=== PATIENT | female | born 1985 | race Caucasian/White ===

== ENCOUNTER → 2021-05-01 16:55 | Outpatient (CLI) | payer BC, SELFPAY ==
--- NOTE | ~2021-05-01 | XR_ITS ---
XR chest 2V DATE: 05/01/2021 17:18 INDICATION: Shortness of breath. Covid-positive. TECHNIQUE: PA and lateral views COMPARISON: None FINDINGS: Normal heart size. No hilar or mediastinal enlargement. No pulmonary infiltrate or consolid ation, pleural effusion or pulmonary vascular congestion or pneumothorax. Mild thoracolumbar dextrosc oliosis. IMPRESSION: No active cardiopulmonary disease Reviewed, dictated and finalized at location B. ENT RELATIONS DIRECTOR
== END ==
DX: R06.02 Shortness of breath (principal); U07.1 COVID-19
CPT/HCPCS: 71046

== ENCOUNTER 2023-03-19 10:02 | Emergency (ER) | payer BC, SELFPAY ==
--- NOTE | ~2023-03-19 | CT_ITS ---
EXAMINATION: CT abdomen pelvis w con DATE: 03/19/2023 12:25 INDICATION: Epigastric pain and diarrhea TECHNIQUE: Computed tomography (CT) of the abdomen and pelvis was performed with 100 mL Omnipaque-350 intravenous contrast. Automated exposure control and iterative reconstruction technique were employe d. The dose-length product was 1213.81 mGy-cm. COMPARISON: None FINDINGS: Lung bases are clear. Heart size is normal. No pericardial or pleural effusion. Liver, gallbladder, s pleen, pancreas, bilateral adrenal glands and kidneys are normal. There is fluid scattered throughout the colon consistent with reported history of diarrhea. No abnormal bowel wall thickening or obstruc tion. Appendix is normal. 5.5 cm avidly enhancing fibroid at the left side of the uterine fundus. Ernesto ateral adnexa are unremarkable. Small fat-containing umbilical hernia. No free intraperitoneal gas or fluid. No pathologically enlarged abdominal or pelvic lymphadenopathy. Mild thoracolumbar spondylosi s. IMPRESSION: 1. Nonspecific diarrhea. No other acute intra-abdominal/pelvic process. 2. 5.5 cm uterine fibroid. Reviewed, dictated and finalized at location A. L CRANE OPERATOR
[2023-03-19 10:20] VITALS: BP 126/87; PULSE 70; RESP 16; TEMP 36.7; O2SAT 96
--- NOTE | 2023-03-19 10:47 | ED.GENADULT ---
HPI - General Adult General Chief complaint: Nausea/Vomiting/Diarrhea Stated complaint: pooping all the time , c. diff exposure Time Seen by Provider: 03/19/23 10:08 History of Present Illness HPI narrative: 38-year-old female reports for evaluation for watery diarrhea x2 days. 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 States she has had copious amounts of watery diarrhea for the past 2 days and reports a 5 lb weight loss. She reports intermittent epigastric abdominal cramping and nausea. No emesis, fever, cough or congestion, chest pain or shortness of breath, dysuria or hematuria. She denies hematochezia melena, no purulence in her stool. No recent antibiotic use, surgery, hospitalizations or travel. Denies syncope. She does states she felt lightheaded yesterday. Related Data Allergies Allergy/AdvReac Type Severity Reaction Status Date / Time tramadol Allergy Rash Verified 03/19/23 10:32 Review of Systems Review of Systems: CONSTITUTIONAL: Denies fever, chills, or sweats. EYES: Denies visual changes, redness, or discharge. ENT: Denies rhinorrhea, congestion, sore throat, or otalgia. CARDIOVASCULAR: Denies chest pain, palpitations, or edema. RESPIRATORY: Denies cough or dyspnea. GASTROINTESTINAL: See HPI GENITOURINARY: Denies dysuria or hematuria. SKIN: Denies rash or itching. MUSCULOSKELETAL: Denies back pain, joint pain, or myalgia. NEUROLOGIC: Denies headache, numbness, or weakness. PSYCHIATRIC: Denies anxiety or depression. Exam Narrative: GENERAL: Well-appearing, well-nourished, and in no acute distress. HEAD: Normocephalic, atraumatic. EYES: PERRLA and EOMI. ENT: Nares clear, no rhinorrhea or epistaxis. Mucous membranes moist. NECK: Supple. CHEST: Clear to auscultation. No respiratory distress. HEART: Regular rate and rhythm. No murmur heard. Normal peripheral pulses. ABDOMEN: Soft, nontender, nondistended, normal active bowel sounds. No guarding, rebound or rigidity. No CVA tenderness. EXTREMITIES: Normal range of motion. No edema. SKIN: Warm, dry, no rash. NEURO: No focal deficits. Alert and oriented x3 Course Vital Signs Vital signs: Vital Signs Temperature 98.1 F 03/19/23 10:20 Pulse Rate 70 03/19/23 10:20 Respiratory Rate 16 03/19/23 10:20 Blood Pressure 126/87 03/19/23 10:20 Pulse Oximetry 96 03/19/23 10:20 Oxygen Delivery Room Air 03/19/23 10:20 Temperature 98.1 F 03/19/23 10:20 Pulse Rate 75 03/19/23 11:26 Respiratory Rate 16 03/19/23 10:20 Blood Pressure 116/60 03/19/23 11:26 Pulse Oximetry 96 03/19/23 10:20 Oxygen Delivery Room Air 03/19/23 10:20 Medical Decision Making MDM Narrative Medical decision making narrative: 38-year-old female reports for evaluation for diarrhea x2 days. See HPI for further history. Vitals are stable and she is afebrile. No hypotension or tachycardia. She is largely well appearing on exam. CBC and chemistries are unremarkable. No electrolyte abnormalities. Magnesium normal at 2.0. Lactic acid not elevated. LFTs unremarkable. Urinalysis not consistent with a UTI. COVID, flu and RSV are negative. C. diff PCR is negative. Lipase normal. negative. CT abdomen pelvis shows nonspecific diarrhea, no other acute intra-abdominal or pelvic process. There is a 5.5 cm uterine fibroid. She is not orthostatic. Labs and imaging discussed with the patient. No significant electrolyte abnormalities or hypotension required admission. She received 2 L of fluids and will be discharged home with close PCP follow-up. Encouraged increased fluid intake, will send Zofran to pharmacy. Strict ED return precautions discussed. She is agreeable to plan verbalized understanding. Discharged in stable condition. Vital Signs Vital Signs: Vital Signs Temperature 98.1 F 03/19/23 10:20 Pulse Rate 70 03/19/23 10:20 Respiratory Rate 16 03/19/23 10:20 Blood Pressure 126/87 03/19/23 10
[2023-03-19] MEDS: SODIUM CHLORIDE 0.9% IV 1,000 ML 999 ML IV CONT ×3 (11:00→12:43)
[2023-03-19 11:15] LABS: Basophils Percent Auto 0.4 % (0.2-1.2); Eosinophils Absolute Auto 0.2 K/mm3 (0-0.3); Eosinophils Percent Auto 2.9 % (0-4.4); Hematocrit 46.9 % (37.0-47.0); Hemoglobin 14.8 g/dL (12.0-15.0); Immature Granulocyte Absolute 0.01 K/mm3 (0.00-0.031); Immature Granulocyte Percent A 0.2 % (0-0.5); Lymphocytes Absolute Auto 1.75 K/mm3 (0.9-3.2); Mean Corpuscular HGB Conc 31.6 g/dl (32-36); Mean Corpuscular Hemoglobin 26.1 pg (26-34); Mean Corpuscular Volume 82.9 fl (80-100); Mean Platelet Volume 9.9 fl (7.4-10.4); Monocytes Absolute Auto 0.5 K/mm3 (0.1-0.6); Monocytes Percent Auto 9.9 % (2.6-8.5); Neutrophils Absolute Auto 2.7 K/mm3 (1.3-6.7); Neutrophils Percent Auto 52.6 % (45.5-73.1); Platelet Count Result 217 k/mm3 (150-375); Red Blood Count 5.66 M/mm3 (4.2-5.4); Red Cell Distribution Width 14.1 % (11.5-14.5); White Blood Count 5.2 K/mm3 (4.5-10.0)
[2023-03-19 11:22] VITALS: BP 127/56; PULSE 68
[2023-03-19 11:24] LABS: Lactic Acid Reflex 0.6 mmol/L (0.7-2.0)
[2023-03-19 11:25] VITALS: BP 119/92; PULSE 67
[2023-03-19 11:26] VITALS: BP 116/60; PULSE 75
[2023-03-19 11:26] LABS: Alanine Aminotransferase 22 U/L (6-35); Albumin Level 4.6 g/dL (3.5-5.1); Alkaline Phosphatase 34 U/L (38-126); Anion Gap 8 mmol/L (8-16); Aspartate Amino Transferase 28 U/L (14-36); Bilirubin,Total 0.5 mg/dL (0.2-1.3); Blood Urea Nitrogen 13 mg/dL (7-17); Calcium 8.5 mg/dL (8.4-10.2); Carbon Dioxide 24 mmol/L (22-30); Chloride 108 mmol/L (98-107); Estimated CRCL calculation 127 ml/min; Estimated Glomerular Filt Rate > 60; Glucose 92 mg/dL (65-110); Lipase 41 U/L (23-300); Sodium 140 mmol/L (137-145)
[2023-03-19 11:30] LABS: Appearance Urine Clear (Clear); Bacteria Urine None Seen /hpf; Bilirubin Urine Negative (Negative); Blood Urine Negative (Negative); Color Urine Yellow (Yellow); Glucose Urine UA Negative (Negative); Ketones Urine Negative (Negative); Leukocyte Esterase Ur Negative LEU/UL (Negative); Mucus Urine Present /lpf; Need Manual Microscopic Reviewed; Nitrate Urine Negative (Negative); Protein Urine Trace mg/dL (Negative); RBC Urine 0-2 /hpf (0-2); Specific Grav Ur 1.028 (1.001-1.035); Squamous Epithelial Cell Urine Occasional /hpf (Few); Urobilinogen Urine 0.2 mg/dL (<2.0)
[2023-03-19 11:37] LABS: Add Urine Microscopic? YES
--- NOTE | 2023-03-19 11:39 | PC.NURSE ---
patient states she had a tubal and not . test cancelled. provider aware
[2023-03-19 11:57] LABS: Influenza A QL RT-PCR Negative (Negative); Influenza B QL RT-PCR Negative (Negative); RSV RNA, RT-PCR Negative (Negative); SARS-CoV-2 RNA PCR Negative (Negative)
[2023-03-19 12:04] LABS: Toxigenic C. Diff NEGATIVE (NEGATIVE)
[2023-03-19 12:57] VITALS: BP 107/76; PULSE 70; RESP 16; O2SAT 100
== END 2023-03-19 13:47 | disposition home or self-care (01) ==
PROVIDERS: Emergency Provider Physician Assistant
DX: K52.9 Noninfective gastroenteritis and colitis, unspecified (principal); Z20.822 Contact with and (suspected) exposure to COVID-19; D25.9 Leiomyoma of uterus, unspecified
CPT/HCPCS: 36415; 74177; 80053; 81001; 81025; 83605; 83690; 83735; 85025; 87045; 87086; 87427; 87449; 87493; 87637; 89055; 96360; 96361; 99284; J7030; Q9967

== ENCOUNTER 2023-07-01 17:00 | Observation (INO) | payer BC, SELFPAY ==
[2023-07-01] VITALS (14 sets, daily range): BP systolic 116–146; BP diastolic 53–82; PULSE 68–101; RESP 12–35; TEMP 37.1–37.2; O2SAT 98–100; BMI 40.9
--- NOTE | ~2023-07-01 | CT_ITS ---
EXAMINATION: CT abdomen pelvis w con DATE: 07/01/2023 18:29 INDICATION: epigastric pain, n/v/d TECHNIQUE: Computed tomography (CT) of the abdomen and pelvis was performed with 100 mL Omnipaque-350 intravenous contrast. Automated exposure control and iterative reconstruction technique were employe d. The dose-length product was 1190.73 mGy-cm. COMPARISON: 03/19/2023. FINDINGS: Lower thorax: Unremarkable Liver: Enlarged. Biliary/Gallbladder: 12 mm hyperdensity adherent to the gallbladder wall in a nondependent position. Dilated gallbladder. Gallbladder wall edema/inflammation. No bile duct dilation. Pancreas: No mass or duct dilation. Spleen: Small splenic cysts or hemangiomas. Adrenals:No mass. Kidneys: No suspicious mass, hydronephrosis, or obstructing calcification. GI tract: No small or large bowel dilation. Normal appendix. Mesentery/Peritoneum: No ascites, mass, or free air. Retroperitoneum: No mass. Pelvis: 6 cm uterine fibroid. Normal bilateral ovaries. Normal urinary bladder. Soft Tissues: Soft tissues and body wall unremarkable. Bones: No acute osseous finding. IMPRESSION: Hepatomegaly. Gallbladder hydrops with gallbladder wall inflammatory change, may represent cholecystitis in the lisbeth ropriate clinical context. Adherent sludge versus bladder wall polyp. Recommend ultrasound of the right upper quadrant for further evaluation. Reviewed, dictated and finalized at location K. IMPRESSION: Hepatomegaly. Gallbladder hydrops with gallbladder wall inflammatory change, may represent ch olecystitis in the appropriate clinical context. Adherent sludge versus bladder wall polyp. Recommend ultrasound of the right upper quadrant for further evaluation.
--- NOTE | ~2023-07-01 | US_ITS ---
US abdomen limited DATE: 07/02/2023 10:27 INDICATION: Right upper quadrant abdominal pain TECHNIQUE: Real-time imaging of liver, pancreas, gallbladder COMPARISON: 03/19/2023 CT abdomen pelvis FINDINGS: No hepatic or pancreatic space-occupying mass lesion is evident. Normal hepatopedal portal venous flow direction. There are multiple filling defects in the dependent aspect of the gallbladder, with shadowing, consis tent with cholelithiasis. There is up to 4.7 mm wide gallbladder wall, consistent with gallbladder wa ll thickening, in addition to pericholecystic fluid and increased vascularity around the gallbladder, suggesting acute cholecystitis. Technologist reports negative sonographic [place]'s sign. The common bile duct measures up to 6 mm diameter, within upper normal range. IMPRESSION: Cholelithiasis Gallbladder wall thickening and pericholecystic fluid, suggesting acute cholecystitis Reviewed, dictated and finalized at Location A. Reviewed, dictated and finalized at location B. IMPRESSION: Cholelithiasis Gallbladder wall thickening and pericholecystic fluid, suggesting acute cholecy stitis
--- NOTE | 2023-07-01 17:10 | PC.NURSE ---
[facility] [phone]
--- NOTE | 2023-07-01 17:15 | ED.ABDPAIN ---
HPI - Abdominal Pain General Chief Complaint: Abdominal Pain <Juan Banks APRN - Last Filed: 07/01/23 17:21> Stated Complaint: unrelenting belly pain <Juan Banks APRN - Last Filed: 07/01/23 17:21> Time Seen by Provider: 07/01/23 17:15 <Juan Banks APRN - Last Filed: 07/01/23 17:21> Focused HPI: Carissa is a 38-year-old female patient presenting to the clinic today with complaints of nausea, vomiting, diarrhea, and epigastric abdominal pain. She reports symptoms started around midnight this morning. Last emesis/diarrhea episodes was in the waiting room bathroom per patient. History of tubal ligation. Denies any urinary symptoms. Does report chills and body aches. General: Well-developed, morbidly obese, in no apparent distress. Head: Normocephalic, atraumatic. Cardio: Regular rate and rhythm, s1 and s2 normal, no murmur appreciated. Resp: Clear to auscultation bilaterally, no rhonchi, rales, wheezing or rubs. Abdomen: Soft, pliable, bowel sounds present in all quadrants, tender to palpation over the epigastric, no organomegly, no CVAT tenderness. Patient screened in triage and initial orders placed. Additional care and disposition to be based upon diagnostic testing and treatment. <Juan Banks APRN - Last Filed: 07/01/23 17:21> Source: patient <Juan Banks APRN - Last Filed: 07/01/23 17:21> Mode of arrival: ambulatory <Juan Banks APRN - Last Filed: 07/01/23 17:21> Limitations: no limitations <Juan Banks APRN - Last Filed: 07/01/23 17:21> Related Data Home Medications: Home Medications Medication Instructions Recorded Confirmed dextroamphetamine-amphetamine 20 20 mg PO DAILY PRN .concentration 07/01/23 07/01/23 mg tablet meloxicam 15 mg tablet 15 mg PO DAILY PRN .lizanis elbow 07/01/23 07/01/23 <Juan Banks APRN - Last Filed: 07/01/23 17:21> Allergies/Adverse Reactions: Allergies Allergy/AdvReac Type Severity Reaction Status Date / Time tramadol Allergy Rash Verified 07/01/23 17:13 <Juan Banks APRN - Last Filed: 07/01/23 17:21> Review of Systems Review of Systems: CONSTITUTIONAL: Denies fever GASTROINTESTINAL: Reports abdominal pain, nausea, vomiting GENITOURINARY: Denies dysuria <Jennifer Dwyer PA-C - Last Filed: 07/01/23 20:56> All systems reviewed & are unremarkable except as noted in HPI and below <Jennifer Dwyer PA-C - Last Filed: 07/01/23 20:56> [facility] Past Medical History Medical History: Medical History (Updated 07/01/23 @ 20:39 by Elenita Mckeon MD) History of ADHD <Juan Banks APRN - Last Filed: 07/01/23 17:21> Surgical History Surgical History: Surgical History (Updated 07/01/23 @ 18:32 by Jennifer Dwyer PA-C) History of History of tubal ligation <Juan Banks APRN - Last Filed: 07/01/23 17:21> Family History Family History: Family History (Updated 07/01/23 @ 21:42 by Chandu Brooks RN) Father Skin cancer Mother Breast cancer Grandparent Dementia Grandparent Heart disease <Juan Banks APRN - Last Filed: 07/01/23 17:21> Social History Social History: Social History (Updated 07/01/23 @ 18:32 by Jennifer Dwyer PA-C) Smoking status: Never smoker Alcohol intake: never Substance use: never Substance use type: does not use Do You Feel Safe in your Home?: Yes Lack of Transportation: No Lack of Food: Never True Current Housing: I Have Housing Concerned About Future Housing: No Difficulty Paying Gas/Electric Bills: No Difficulty Paying for Meds: No Currently Unemployed: No Education: Associate Degree Difficulty w/ Childcare or Family Care: No Spiritual care concerns: No <KALIA Whatley Last Filed: 07/01/23 17:21> Comments At the time of my signature, I reviewed and agree with the nursing past medical, surgical, soc
[2023-07-01 17:33] LABS: Basophils Percent Auto 0.2 % (0.2-1.2); Eosinophils Percent Auto 0.1 % (0-4.4); Hematocrit 47.5 % (37.0-47.0); Hemoglobin 15.7 g/dL (12.0-15.0); Immature Granulocyte Absolute 0.07 K/mm3 (0.00-0.031); Immature Granulocyte Percent A 0.5 % (0-0.5); Lymphocytes Absolute Auto 2.38 K/mm3 (0.9-3.2); Lymphocytes Percent Auto 17.2 % (18.3-44.2); Mean Corpuscular HGB Conc 33.1 g/dl (32-36); Mean Corpuscular Hemoglobin 27.4 pg (26-34); Mean Platelet Volume 9.8 fl (7.4-10.4); Monocytes Absolute Auto 0.6 K/mm3 (0.1-0.6); Monocytes Percent Auto 4.6 % (2.6-8.5); Neutrophils Absolute Auto 10.7 K/mm3 (1.3-6.7); Neutrophils Percent Auto 77.4 % (45.5-73.1); Platelet Count Result 229 k/mm3 (150-375); Red Blood Count 5.72 M/mm3 (4.2-5.4); Red Cell Distribution Width 13.2 % (11.5-14.5); White Blood Count 13.8 K/mm3 (4.5-10.0)
[2023-07-01] MEDS: ONDANSETRON INJ 4 MG/2 ML VIAL IV PUSH ×2 (17:33→21:21)
[2023-07-01] MEDS: SODIUM CHLORIDE 0.9% IV 1,000 ML 999 ML IV CONT (17:33)
[2023-07-01 17:43] LABS: Alanine Aminotransferase 19 U/L (6-35); Albumin Level 4.7 g/dL (3.5-5.1); Alkaline Phosphatase 29 U/L (38-126); Anion Gap 9 mmol/L (4-12); Aspartate Amino Transferase 29 U/L (14-36); Bilirubin,Total 0.7 mg/dL (0.2-1.3); Blood Urea Nitrogen 10 mg/dL (7-17); Calcium 10.3 mg/dL (8.4-10.2); Carbon Dioxide 23 mmol/L (22-30); Chloride 104 mmol/L (98-107); Estimated CRCL calculation 142 ml/min; Estimated Glomerular Filt Rate > 60; Glucose 115 mg/dL (65-110); Lipase 59 U/L (23-300); Potassium 3.9 mmol/L (3.4-5.0); Sodium 136 mmol/L (137-145)
[2023-07-01 18:04] LABS: Influenza A QL RT-PCR Negative (Negative); Influenza B QL RT-PCR Negative (Negative); RSV RNA, RT-PCR Negative (Negative); SARS-CoV-2 RNA PCR Negative (Negative)
[2023-07-01 18:33] LABS: Appearance Urine Clear (Clear); Bacteria Urine None Seen /hpf; Bilirubin Urine Negative (Negative); Blood Urine Negative (Negative); Color Urine Yellow (Yellow); Glucose Urine UA Negative (Negative); Ketones Urine 1+ mg/dL (Negative); Leukocyte Esterase Ur Negative LEU/UL (Negative); Nitrate Urine Negative (Negative); Non Pathogenic Casts 0-2; Protein Urine Trace mg/dL (Negative); RBC Urine 0-2 /hpf (0-2); Squamous Epithelial Cell Urine Few /hpf (Few); Urobilinogen Urine 0.2 mg/dL (<2.0); WBC Urine 0-5 /hpf (0-3)
[2023-07-01 18:41] LABS: Add Urine Microscopic? YES
[2023-07-01] MEDS: FAMOTIDINE 20 MG/2 ML VIAL IV PUSH (18:58)
[2023-07-01] MEDS: MORPHINE SULFATE (*CRX) 4 MG/ML INJ IV PUSH ×2 (19:01→21:21)
--- NOTE | 2023-07-01 19:02 | PC.NURSE ---
This RN reviewed student nurse Stella Jamil charting and agrees
--- NOTE | 2023-07-01 19:14 | PC.NURSE ---
Report given to Balbina CRUZ, all questions answered.
--- NOTE | 2023-07-01 20:33 | PM.IMHP ---
H&P: HPI History of Present Illness Date/Time: 07/01/23 20:33 Chief Complaint: Abdomen pain Narrative: 38 years old lady without significant past medical history present ED with a chief complaint of right quadrant pain. Patient start to have right quadrant pain last night, associated with intermittent nausea and vomiting. Patient denies fever, chills. And patient also has diarrhea. Patient has worsening pain and cannot tolerate diet, therefore came to ED for evaluation. Upon arrival in the ED, patient was afebrile, blood pressure stable, pulse ox 99 on room air,. Labs showed leukocytosis of 13,800 with left shift, CT abdomen pelvis showed gallbladder hydrops with gallbladder wall inflammatory change, may represent cholecystitis. ER physician consulted the general surgeon, received fluid resuscitation. We admit patient for further evaluation and treatment Review of Systems Review of Systems: ROS negative except above PMFSH Past Medical History Medical History (Updated 07/01/23 @ 20:39 by Elenita Mckeon MD) History of ADHD Surgical History Surgical History (Updated 07/01/23 @ 18:32 by Jennifer Dwyer PA-C) History of History of tubal ligation Social History Social History (Updated 07/01/23 @ 18:32 by Jennifer Dwyer PA-C) Substance use: never Meds Home Medications and Allergies Home Medications Medication Instructions Recorded Confirmed Type ondansetron 4 mg disintegrating 4 mg PO Q8H #20 tabs 03/19/23 Rx tablet Allergies Allergy/AdvReac Type Severity Reaction Status Date / Time tramadol Allergy Rash Verified 07/01/23 17:13 Vital Signs Vital Signs - 24 hr 07/01/23 17:10 07/01/23 17:52 07/01/23 19:01 Temperature 98.9 F Pulse Rate 79 82 73 Respiratory Rate 20 19 17 Blood Pressure 146/82 H 143/70 H 126/68 Pulse Oximetry 100 98 99 Oxygen Delivery Room Air Exam Narrative: GENERAL: Pleasant, in no acute distress. Well-nourished. - EYES: EOMI. Anicteric. - HENT: Moist mucous membranes. - LUNGS: Clear to auscultation bilaterally, no wheezing, rhonchi, or rales. - CARDIOVASCULAR: Regular rate and rhythm. No murmur. No JVD. - ABDOMEN: Soft, right upper quarter tender and non-distended. No palpable masses. - EXTREMITIES: No edema. Peripheral pulses 2+. Non-tender. - NEUROLOGIC: No focal neurological deficits. CN II-XII grossly intact. - PSYCHIATRIC: Awake, Alert and oriented x 3. Appropriate mood and affect. - SKIN: No rashes or lesions. Warm. - LYMPH: No cervical lymphadenopathy. H&P: Results Labs Labs: Short CBC 07/01/23 Range/Units 17:19 WBC 13.8 H (4.5-10.0) K/mm3 Hgb 15.7 H (12.0-15.0) g/dL Hct 47.5 H (37.0-47.0) % Plt Count 229 (150-375) k/mm3 BMP 07/01/23 17:19 Sodium 136 L Potassium 3.9 Chloride 104 Carbon Dioxide 23 BUN 10 Creatinine 0.50 L Glucose 115 H Calcium 10.3 H Liver Function 07/01/23 Range/Units 17:19 Total Bilirubin 0.7 (0.2-1.3) mg/dL AST 29 (14-36) U/L ALT 19 (6-35) U/L Alkaline Phosphatase 29 L (38-126) U/L Albumin 4.7 (3.5-5.1) g/dL Urine 07/01/23 Range/Units 17:58 Urine Color Yellow (Yellow) Urine Appearance Clear (Clear) Urine pH 6.0 (5.0-9.0) Ur Specific [place] 1.020 (1.001-1.035) Urine Protein Trace (Negative) mg/dL Urine Glucose (UA) Negative (Negative) mg/dL Assessment and Plan Assessment and plan (1) Right upper quadrant abdominal pain: Code(s): R10.11 - Right upper quadrant pain Status: Acute (2) Acute cholecystitis: Code(s): K81.0 - Acute cholecystitis Status: Acute Plan Acute right upper quadrant pain Suspecting acute cholecystitis Labs showed leukocytosis of 13,800 with left shift, CT abdomen pelvis showed gallbladder hydrops with gallbladder wall inflammatory change, may represent cholecystitis. Patient also has nausea vomiting diarrhea Keep patient p.o. S
[2023-07-01] MEDS: SODIUM CHLORIDE 0.9% IV 1,000 ML 125 ML IV CONT (21:21)
[2023-07-01] MEDS: cefTRIAXone 2 GM/NS 100 ML 2 GM/100 ML BAG IVPB (21:21)
--- NOTE | 2023-07-01 21:39 | ADMGEN ---
This patient, Yolanda Hernandez, was admitted to Medical Room 242-01. Patient/family oriented to hospital policies and general routines including ID bracelet, bed and alarms, visiting hours, pain management, procedures, bathroom and other care routines, personal items, smoking policy, room service/diet, and visiting hours. Information on how to activate the Rapid Response Team has been discussed. Patient/Family are encouraged to report perceived risks to care and to ask questions if they do not understand what they are told or what they should do.
[2023-07-01] MEDS: metroNIDAZOLE 500 MG/ISO 100ML 500 MG/100 ML BAG 100 MG IVPB (22:15)
[2023-07-02] MEDS: MORPHINE SULFATE (*CRX) 4 MG/ML INJ IV PUSH (03:12)
[2023-07-02] MEDS: ONDANSETRON INJ 4 MG/2 ML VIAL IV PUSH (03:13)
[2023-07-02 05:26] VITALS: BP 104/59; PULSE 83; RESP 18; TEMP 36.9; O2SAT 98
[2023-07-02] MEDS: metroNIDAZOLE 500 MG/ISO 100ML 500 MG/100 ML BAG 100 MG IVPB ×3 (06:43→20:13)
--- NOTE | 2023-07-02 07:11 | PM.IMPN ---
Progress Note: A&P Assessment and Plan (1) Acute cholecystitis: Code(s): K81.0 - Acute cholecystitis Status: Acute Assessment and Plan: Patient presented to hospital on 07/01/23 with RUQ pain and associated nausea/vomiting and diarrhea. On arrival labs showed leukocytosis with left shift. CT abdomen pelvis revealed gallbladder hydrops with wall inflammation likely representing cholecystitis. General surgery consulted abdominal US NS 125 ml/hr Ceftriaxone 2g daily Flagyl 500 mg q8 hr NPO analgesics antiemetics Subjective Date/time seen: 07/02/23 07:11 Interval history: 38 year old female with no significant medical history presented to the ED for right upper quadrant pain with associated nausea/vomiting and diarrhea. CT abdomen pelvis revealed cholecystitis. Review of Systems Review of Systems: All systems reviewed & are unremarkable except as noted in HPI and below Objective Data Vital Signs Vital Signs: Vital Signs - 24 hr 07/01/23 17:10 07/01/23 17:52 07/01/23 19:01 Temperature 98.9 F Pulse Rate 79 82 73 Respiratory Rate 20 19 17 Blood Pressure 146/82 H 143/70 H 126/68 Pulse Oximetry 100 98 99 Oxygen Delivery Room Air 07/01/23 17:58 07/01/23 18:00 07/01/23 18:01 Temperature Pulse Rate 74 70 70 Respiratory Rate 30 H 15 12 Blood Pressure 143/73 H Pulse Oximetry 99 Oxygen Delivery 07/01/23 18:25 07/01/23 18:30 07/01/23 18:47 Temperature Pulse Rate 82 75 68 Respiratory Rate 17 17 17 Blood Pressure Pulse Oximetry 100 100 Oxygen Delivery 07/01/23 19:39 07/01/23 19:46 07/01/23 20:35 Temperature Pulse Rate 81 101 H 90 Respiratory Rate 35 H 20 Blood Pressure Pulse Oximetry 100 Oxygen Delivery 07/01/23 20:45 07/01/23 21:35 07/02/23 00:00 Temperature 98.7 F Pulse Rate 96 84 Respiratory Rate 18 Blood Pressure 116/53 L Pulse Oximetry 99 Oxygen Delivery Room Air 07/02/23 05:26 Temperature 98.4 F Pulse Rate 83 Respiratory Rate 18 Blood Pressure 104/59 L Pulse Oximetry 98 Oxygen Delivery Intake/Output Intake/Output: Intake & Output 06/29/23 06/30/23 07/01/23 07/02/23 23:59 23:59 23:59 23:59 Intake Total 1200 0 Output Total 250 Balance 1200 -250 Meds/Results Medications: Active Medications Generic Name Dose Route Start Last Admin Trade Name Sera PRN Reason Stop Dose Admin Sodium Chloride 1,000 mls @ 125 mls/hr 07/01/23 20:35 07/01/23 21:21 Normal Saline Iv IV CONT 125 mls/hr .Q8H EMILY Administration Ceftriaxone Sodium 2 gm in 100 mls @ 200 mls/hr 07/01/23 21:00 07/01/23 22:13 Rocephin 2 Gm/Ns 100 Ml IVPB Infused Q24H EMILY Infusion Metronidazole 500 mg in 100 mls @ 100 mls/hr 07/01/23 22:00 07/02/23 06:43 Flagyl 500 Mg/Iso Soln 100 Ml IVPB 100 mls/hr Q8HR EMILY Administration Morphine Sulfate 4 mg 07/01/23 20:32 07/02/23 03:12 Morphine Sulfate (*Crx) 4 Mg/Ml Inj IV PUSH 4 mg Q4H PRN Administration Pain Rated 7-10 Ondansetron HCl 4 mg 07/01/23 20:32 07/02/23 03:13 Ondansetron Inj 4 Mg/2 Ml Vial IV PUSH 4 mg Q4H PRN Administration Nausea Radiology Results: ITS Impressions Abdomen/Pelvis CT 07/01/23 18:47 IMPRESSION: Hepatomegaly. Gallbladder hydrops with gallbladder wall inflammatory change, may represent cholecystitis in the appropriate clinical context. Adherent sludge versus bladder wall polyp. Recommend ultrasound of the right upper quadrant for further evaluation. Labs Labs: Laboratory Results - last 24 hr 07/01/23 07/01/23 07/01/23 17:19 17:22 17:58 WBC 13.8 H RBC 5.72 H Hgb 15.7 H Hct 47.5 H MCV 83.0 MCH 27.4 MCHC 33.1 RDW 13.2 Plt Count 229 MPV 9.8 Immature Gran % (Auto) 0.5 Neut % (Auto) 77.4 H Lymph % (Auto) 17.2 L [place] % (Auto) 4.6 Eos % (Auto) 0.1 Baso % (Auto) 0.2 Lymph # (Auto) 2.38 [place] # (Aut
[2023-07-02] MEDS: SODIUM CHLORIDE 0.9% IV 1,000 ML 125 ML IV CONT ×2 (07:34→20:14)
--- NOTE | 2023-07-02 07:43 | PM.IMPN ---
Progress Note: A&P Assessment and Plan (1) Acute cholecystitis: Code(s): K81.0 - Acute cholecystitis Status: Acute (2) Right upper quadrant abdominal pain: Code(s): R10.11 - Right upper quadrant pain Status: Acute (3) Severe sepsis: Code(s): A41.9 - Sepsis, unspecified organism; R65.20 - Severe sepsis without septic shock Status: Acute Plan Acute right upper quadrant pain Suspecting acute cholecystitis Labs showed leukocytosis of 13,800 with left shift, CT abdomen pelvis showed?gallbladder hydrops with gallbladder wall inflammatory change, may represent cholecystitis. Patient also has nausea vomiting diarrhea Keep patient p.o. Start normal saline IV Start Zofran 4 mg IV p.r.n. Start ceftriaxone and Flagyl IV 06/30 Abdomen ultrasound suggests Gallbladder wall thickening and pericholecystic fluid, suggesting acute cholecystitis? Continue antibiotics, 07/01 sepsis Patient has leukocytosis 13,800 with a neutrophilic shift, tachycardia tachypnea, patient developed sepsis Follow-up blood culture : No growth so far Continue fluid resuscitation Subjective Date/time seen: 07/02/23 07:43 Interval history: I saw and exam patient today. Patient feels pain is well controlled on the necrotic medication. Patient denies nausea vomiting. Patient is afebrile overnight, was blood pressure is soft, 100 tachycardia tachypnea Exam Narrative: GENERAL: Pleasant, in no acute distress. Well-nourished. - EYES: EOMI. Anicteric. - HENT: Moist mucous membranes. - LUNGS: Clear to auscultation bilaterally, no wheezing, rhonchi, or rales. - CARDIOVASCULAR: Regular rate and rhythm. No murmur. No JVD. - ABDOMEN: Soft, right upper quarter tender and non-distended. No palpable masses. - EXTREMITIES: No edema. Peripheral pulses 2+. Non-tender. - NEUROLOGIC: No focal neurological deficits. CN II-XII grossly intact. - PSYCHIATRIC: Awake, Alert and oriented x 3. Appropriate mood and affect. - SKIN: No rashes or lesions. Warm. - LYMPH: No cervical lymphadenopathy. Objective Data Vital Signs Vital Signs: Vital Signs - 24 hr 07/01/23 17:10 07/01/23 17:52 07/01/23 19:01 Temperature 98.9 F Pulse Rate 79 82 73 Respiratory Rate 20 19 17 Blood Pressure 146/82 H 143/70 H 126/68 Pulse Oximetry 100 98 99 Oxygen Delivery Room Air 07/01/23 17:58 07/01/23 18:00 07/01/23 18:01 Temperature Pulse Rate 74 70 70 Respiratory Rate 30 H 15 12 Blood Pressure 143/73 H Pulse Oximetry 99 Oxygen Delivery 07/01/23 18:25 07/01/23 18:30 07/01/23 18:47 Temperature Pulse Rate 82 75 68 Respiratory Rate 17 17 17 Blood Pressure Pulse Oximetry 100 100 Oxygen Delivery 07/01/23 19:39 07/01/23 19:46 07/01/23 20:35 Temperature Pulse Rate 81 101 H 90 Respiratory Rate 35 H 20 Blood Pressure Pulse Oximetry 100 Oxygen Delivery 07/01/23 20:45 07/01/23 21:35 07/02/23 00:00 Temperature 98.7 F Pulse Rate 96 84 Respiratory Rate 18 Blood Pressure 116/53 L Pulse Oximetry 99 Oxygen Delivery Room Air 07/02/23 05:26 Temperature 98.4 F Pulse Rate 83 Respiratory Rate 18 Blood Pressure 104/59 L Pulse Oximetry 98 Oxygen Delivery Intake/Output Intake/Output: Intake & Output 06/29/23 06/30/23 07/01/23 07/02/23 23:59 23:59 23:59 23:59 Intake Total 1200 1000 Output Total 550 Balance 1200 450 Meds/Results Medications: Active Medications Generic Name Dose Route Start Last Admin Trade Name Freq PRN Reason Stop Dose Admin Sodium Chloride 1,000 mls @ 125 mls/hr 07/01/23 20:35 07/02/23 07:34 Normal Saline Iv IV CONT 125 mls/hr .Q8H EMILY Administration Ceftriaxone Sodium 2 gm in 100 mls @ 200 mls/hr 07/01/23 21:00 07/01/23 22:13 Rocephin 2 Gm/Ns 100 Ml IVPB Infused Q24H EMILY Infusion Metronidazole 500 mg in 100 mls @ 100 mls/hr 07/01/23 22:00 07/02/23 06:43 Flagyl 500 Mg/Iso Soln 100 Ml IVPB 100 mls/hr Q8HR S
[2023-07-02 07:50] VITALS: RESP 18; O2SAT 98
[2023-07-02] MEDS: SODIUM CHLORIDE 0.9% IV 1,000 ML 999 ML IV CONT (08:22)
[2023-07-02 08:46] LABS: Basophils Percent Auto 0.2 % (0.2-1.2); Eosinophils Absolute Auto 0.1 K/mm3 (0-0.3); Eosinophils Percent Auto 0.9 % (0-4.4); Hematocrit 40.7 % (37.0-47.0); Hemoglobin 13.2 g/dL (12.0-15.0); Immature Granulocyte Absolute 0.02 K/mm3 (0.00-0.031); Immature Granulocyte Percent A 0.2 % (0-0.5); Lymphocytes Absolute Auto 1.82 K/mm3 (0.9-3.2); Lymphocytes Percent Auto 19.4 % (18.3-44.2); Mean Corpuscular HGB Conc 32.4 g/dl (32-36); Mean Corpuscular Hemoglobin 26.9 pg (26-34); Mean Corpuscular Volume 83.1 fl (80-100); Mean Platelet Volume 9.7 fl (7.4-10.4); Monocytes Absolute Auto 0.8 K/mm3 (0.1-0.6); Monocytes Percent Auto 8.2 % (2.6-8.5); Neutrophils Absolute Auto 6.7 K/mm3 (1.3-6.7); Neutrophils Percent Auto 71.1 % (45.5-73.1); Platelet Count Result 169 k/mm3 (150-375); Red Cell Distribution Width 13.2 % (11.5-14.5); White Blood Count 9.4 K/mm3 (4.5-10.0)
[2023-07-02 08:58] LABS: Alanine Aminotransferase 16 U/L (6-35); Albumin Level 3.7 g/dL (3.5-5.1); Alkaline Phosphatase 23 U/L (38-126); Anion Gap 2 mmol/L (4-12); Aspartate Amino Transferase 20 U/L (14-36); Bilirubin,Total 0.6 mg/dL (0.2-1.3); Blood Urea Nitrogen 10 mg/dL (7-17); Calcium 8.6 mg/dL (8.4-10.2); Carbon Dioxide 30 mmol/L (22-30); Chloride 105 mmol/L (98-107); Estimated CRCL calculation 158 ml/min; Estimated Glomerular Filt Rate > 60; Glucose 94 mg/dL (65-110); Potassium 3.3 mmol/L (3.4-5.0); Sodium 137 mmol/L (137-145)
[2023-07-02 09:03] LABS: Lactic Acid Reflex 1.1 mmol/L (0.7-2.0)
--- NOTE | 2023-07-02 09:17 | PM.CNGS ---
Assessment and Plan Assessment and plan (1) Acute cholecystitis: Code(s): K81.0 - Acute cholecystitis Status: Acute Assessment and Plan: CT scan reviewed and showed gallbladder polyp versus adherent sludge with signs of possible cholecystitis. No obvious gallstones on CT. Her presentation and exam are consistent with gallbladder disease. Her abdominal pain has improved some this morning, and a RUQ ultrasound has been ordered. Will await these results. I went ahead and discussed treatment options with the patient if the ultrasound shows findings consistent with cholecystitis. We discussed both nonoperative management with dietary modifications versus proceeding with a laparoscopic cholecystectomy under general anesthesia by Dr. Leiva. Description of the procedure, risks, benefits, expected outcomes, and expected recovery were discussed with the patient in detail. We discussed the risks of bile leak and bile duct injury, liver/bowel injury, bleeding, and infection. Also discussed the possibility of having to convert to an open procedure if necessary. The patient would prefer to have surgery. All questions were answered. Will plan accordingly following the ultrasound. Keep her NPO with IV fluids for now. Plan I have discussed the patient's case and plan of care with Dr. Leiva. History of Present Illness Consult details Consult date: 07/02/23 Reason for consult: other (Right upper quadrant pain) Requesting physician: Jennifer Dwyer PA-C Narrative: This is a 38-year-old female who we have been asked to see in surgical consultation for right upper quadrant pain. She presented to the ER yesterday for right upper quadrant pain x 1 day. She reports eating Maori food for dinner 2 nights ago and shortly after eating notice some gas pains. She went to bed and woke up around midnight with upper abdominal pain. She reports initially her pain was in the epigastric area and radiated across her upper abdomen. She that she had have a bowel movement, but after multiple bowel movements there was no relief in her pain. She had severe nausea and had multiple episodes of vomiting at home. Denies coffee-ground emesis or hematemesis. Her pain progressively worsened throughout the day. She tried eating some crackers and quickly through this up. Her pain began to localize to the right upper quadrant and she presented to the ER for evaluation. [place] [address], LFTs and lipase normal. CT scan of the abdomen and pelvis showed hepatomegaly, gallbladder hydrops with gallbladder wall inflammatory change that may represent cholecystitis, adherent sludge versus gallbladder wall polyp. No bile duct dilatation. She was admitted to the hospitalist service and started on IV ceftriaxone and metronidazole. She is now seen on the medical floor. Her abdominal pain has improved some, but she has been receiving morphine through the night. Her nausea has improved as well after receiving Zofran. She denies ever having this pain in the past. Previous abdominal surgeries include 3 deliveries, tubal ligation, and ovarian cystectomy. She also reports significant lifestyle and dietary changes for weight loss. She has lost about 70-80 lb over the past 2 years. Review of Systems Review of Systems: All systems reviewed & are unremarkable except as noted in HPI and below PMFSH Past Medical History Medical History History of ADHD Surgical History Surgical History History of History of ovarian cystectomy History of tubal ligation Family History Family History Father Skin cancer Mother Breast cancer Grandparent Dementia Grandparent Heart disease Social History Social History Smoking status:
[2023-07-02] MEDS: POTASSIUM CHLORIDE INJ 40 MEQ in SODIUM CHLORIDE 0.9% IV 500 ML 130 MEQ IVPB (10:46)
[2023-07-02 12:24] LABS: Glucose Point of Care 87 mg/dl (65-105)
[2023-07-02 14:17] VITALS: BP 120/57; PULSE 80; RESP 18; TEMP 36.6; O2SAT 98
[2023-07-02] MEDS: ACETAMINOPHEN 500 MG TABLET 1000 MG PO ×2 (14:27→20:13)
[2023-07-02 17:21] LABS: Glucose Point of Care 84 mg/dl (65-105)
[2023-07-02 19:34] VITALS: BP 108/63; PULSE 76; RESP 17; TEMP 36.7; O2SAT 99
[2023-07-02 20:00] VITALS: PULSE 76; RESP 17; O2SAT 99
[2023-07-02] MEDS: cefTRIAXone 2 GM/NS 100 ML 2 GM/100 ML BAG IVPB (20:13)
[2023-07-02 20:53] VITALS: TEMP 36.7
[2023-07-02 23:54] LABS: Glucose Point of Care 85 mg/dl (65-105)
[2023-07-03] VITALS (14 sets, daily range): BP systolic 113–145; BP diastolic 48–71; PULSE 67–90; RESP 13–18; TEMP 36.2–37.2; O2SAT 96–100
[2023-07-03] MEDS: metroNIDAZOLE 500 MG/ISO 100ML 500 MG/100 ML BAG 100 MG IVPB ×3 (05:05→21:01)
[2023-07-03 05:21] LABS: Basophils Percent Auto 0.3 % (0.2-1.2); Eosinophils Absolute Auto 0.2 K/mm3 (0-0.3); Hematocrit 37.8 % (37.0-47.0); Immature Granulocyte Absolute 0.02 K/mm3 (0.00-0.031); Immature Granulocyte Percent A 0.3 % (0-0.5); Lymphocytes Absolute Auto 1.83 K/mm3 (0.9-3.2); Lymphocytes Percent Auto 30.3 % (18.3-44.2); Mean Corpuscular HGB Conc 31.7 g/dl (32-36); Mean Corpuscular Hemoglobin 26.9 pg (26-34); Mean Corpuscular Volume 84.8 fl (80-100); Mean Platelet Volume 9.9 fl (7.4-10.4); Monocytes Absolute Auto 0.5 K/mm3 (0.1-0.6); Monocytes Percent Auto 8.1 % (2.6-8.5); Neutrophils Absolute Auto 3.5 K/mm3 (1.3-6.7); Platelet Count Result 154 k/mm3 (150-375); Red Blood Count 4.46 M/mm3 (4.2-5.4); Red Cell Distribution Width 13.1 % (11.5-14.5)
[2023-07-03 05:42] LABS: Alanine Aminotransferase 16 U/L (6-35); Albumin Level 3.4 g/dL (3.5-5.1); Alkaline Phosphatase 22 U/L (38-126); Anion Gap 3 mmol/L (4-12); Aspartate Amino Transferase 20 U/L (14-36); Bilirubin,Total 0.5 mg/dL (0.2-1.3); Blood Urea Nitrogen 7 mg/dL (7-17); Carbon Dioxide 27 mmol/L (22-30); Chloride 107 mmol/L (98-107); Estimated CRCL calculation 158 ml/min; Estimated Glomerular Filt Rate > 60; Glucose 86 mg/dL (65-110); Potassium 3.1 mmol/L (3.4-5.0); Sodium 137 mmol/L (137-145)
[2023-07-03 05:56] LABS: Procalcitonin 0.1 ng/mL
[2023-07-03 06:01] LABS: Glucose Point of Care 85 mg/dl (65-105)
--- NOTE | 2023-07-03 07:44 | PM.IMPN ---
Progress Note: A&P Assessment and Plan (1) Acute cholecystitis: Code(s): K81.0 - Acute cholecystitis Status: Acute (2) Right upper quadrant abdominal pain: Code(s): R10.11 - Right upper quadrant pain Status: Acute (3) Severe sepsis: Code(s): A41.9 - Sepsis, unspecified organism; R65.20 - Severe sepsis without septic shock Status: Acute Plan Acute right upper quadrant pain Suspecting acute cholecystitis Labs showed leukocytosis of 13,800 with left shift, CT abdomen pelvis showed?gallbladder hydrops with gallbladder wall inflammatory change, may represent cholecystitis. Patient also has nausea vomiting diarrhea Keep patient p.o. Start normal saline IV Start Zofran 4 mg IV p.r.n. Start ceftriaxone and Flagyl IV 06/30 Abdomen ultrasound suggests Gallbladder wall thickening and pericholecystic fluid, suggesting acute cholecystitis? Continue antibiotics, 07/01 Laparoscopic cholecystectomy is scheduled, patient requests to speak to surgeon about the surgical treatment before making final decision 07/02 sepsis Patient has leukocytosis 13,800 with a neutrophilic shift, tachycardia tachypnea, patient developed sepsis Follow-up blood culture : No growth so far Continue fluid resuscitation resolves Hypokalemia Potassium 3.1 Provide potassium chloride 40 mg IV once Subjective Date/time seen: 07/03/23 07:44 Interval history: I saw and exam patient today. Patient denies abdomen pain, fever, chills, nausea vomiting. Patient is afebrile, blood pressure stable, a 3-0, leukocytosis resolved. Potassium 3.1, Exam Narrative: GENERAL: Pleasant, in no acute distress. Well-nourished. - EYES: EOMI. Anicteric. - HENT: Moist mucous membranes. - LUNGS: Clear to auscultation bilaterally, no wheezing, rhonchi, or rales. - CARDIOVASCULAR: Regular rate and rhythm. No murmur. No JVD. - ABDOMEN: Soft, no tender and non-distended. No palpable masses. - EXTREMITIES: No edema. Peripheral pulses 2+. Non-tender. - NEUROLOGIC: No focal neurological deficits. CN II-XII grossly intact. - PSYCHIATRIC: Awake, Alert and oriented x 3. Appropriate mood and affect. - SKIN: No rashes or lesions. Warm. - LYMPH: No cervical lymphadenopathy. Objective Data Vital Signs Vital Signs: Vital Signs - 24 hr 07/02/23 07:50 07/02/23 14:17 07/02/23 19:34 Temperature 97.9 F 98.1 F Pulse Rate 80 76 Respiratory Rate 18 18 17 Blood Pressure 120/57 L 108/63 Pulse Oximetry 98 98 99 Oxygen Delivery Room Air 07/02/23 20:53 07/02/23 20:00 Temperature 98.1 F Pulse Rate 76 Respiratory Rate 17 Blood Pressure Pulse Oximetry 99 Oxygen Delivery Room Air Intake/Output Intake/Output: Intake & Output 06/30/23 07/01/23 07/02/23 07/03/23 23:59 23:59 23:59 23:59 Intake Total 1200 4265.8 120 Output Total 2050 1150 Balance 1200 2215.8 -1030 Meds/Results Medications: Active Medications Generic Name Dose Route Start Last Admin Trade Name Freq PRN Reason Stop Dose Admin Acetaminophen 1,000 mg 07/02/23 14:16 07/02/23 20:13 Acetaminophen 500 Mg Tablet PO 1,000 mg Q6H PRN Administration Mild Pain (1-3) or Fever Fentanyl Citrate 25 mcg 07/02/23 16:07 Fentanyl Citrate Inj (*Crx) 100 Mcg/2 Ml Vial IV PUSH Q2M PRN Pain Sodium Chloride 1,000 mls @ 125 mls/hr 07/01/23 20:35 07/02/23 20:14 Normal Saline Iv IV CONT 125 mls/hr .Q8H EMILY Administration Ceftriaxone Sodium 2 gm in 100 mls @ 200 mls/hr 07/01/23 21:00 07/02/23 20:13 Rocephin 2 Gm/Ns 100 Ml IVPB 200 mls/hr Q24H EMILY Administration Metronidazole 500 mg in 100 mls @ 100 mls/hr 07/01/23 22:00 07/03/23 05:05 Flagyl 500 Mg/Iso Soln 100 Ml IVPB 100 mls/hr Q8HR EMILY Administration Lactated Ringer's 1,000 mls @ 30 mls/hr 07/02/23 16:10 Lr - Lactated Ringers Iv IV CONT .Q24H EMILY Lactated Ringer's 1,000 mls @ 30 mls/hr 07/02/23 16:10 Lr - Lactated Ringers Iv IV CONT
--- NOTE | 2023-07-03 08:18 | PC.NURSE ---
Report called to Ted CRUZ in Preop.
[2023-07-03] MEDS: SODIUM CHLORIDE 0.9% IV 1,000 ML 125 ML IV CONT (11:20)
[2023-07-03 12:27] LABS: Glucose Point of Care 81 mg/dl (65-105)
--- NOTE | 2023-07-03 13:26 | PCCCNOTE ---
On 07/03/23, the student, Delicia Benz, provided care and completed [facility] documentation on this patient. I have reviewed the student's documentation and agree with the findings.
--- NOTE | 2023-07-03 13:32 | PC.NURSE ---
To OR via bed. Family at bedside. Voiding without difficulty.
[2023-07-03] MEDS: LACTATED RINGERS 1,000 ML 30 ML IV CONT (14:00)
--- NOTE | 2023-07-03 14:30 | WPDHPUPDATE1 ---
History and Physical Update Update Date/Time: 07/03/23 14:30 History and Physical has been reviewed, including an updated exam of the patient. There are NO changes in the patient's condition. Risks, benefits, and alternatives have been discussed and questions answered. Patient agrees to proceed with procedure.
--- NOTE | 2023-07-03 14:35 | WPDANESEPPF ---
Anes - Initial Pre Proc Eval Procedure: Operation Date: 07/03/23 15:30 Proposed Procedures p Laparoscopic Cholecystectomy - Butch Leiva DO Date/Time: 07/03/23 14:35 Surgeon: Elenita Mckeon MD Pre Op Diagnosis: RUQ Pain,Biliary Colic Patient Data Age: 38 Gender: F Height: 1.65 m Weight: 111.7 kg Last Vital Signs Temp 98.1 F 07/03/23 14:10 Pulse 78 07/03/23 14:10 Resp 14 07/03/23 14:10 BP 123/58 L 07/03/23 14:10 Pulse Ox 99 07/03/23 14:10 O2 Del Method Room Air 07/03/23 14:10 Allergies Allergy/AdvReac Type Severity Reaction Status Date / Time tramadol Allergy Rash Verified 07/01/23 17:13 Home Medications Medication Instructions Recorded Confirmed Type ondansetron 4 mg disintegrating 4 mg PO Q8H #20 tabs 03/19/23 07/01/23 Rx tablet dextroamphetamine-amphetamine 20 20 mg PO DAILY PRN .concentration 07/01/23 07/01/23 History mg tablet meloxicam 15 mg tablet 15 mg PO DAILY PRN .tennis elbow 07/01/23 07/01/23 History Laboratory Tests 07/02/23 07/02/23 07/03/23 17:18 23:50 04:39 WBC 6.0 K/mm3 (4.5-10.0) RBC 4.46 M/mm3 (4.2-5.4) Hgb 12.0 g/dL (12.0-15.0) Hct 37.8 % (37.0-47.0) MCV 84.8 fl (80-100) MCH 26.9 pg (26-34) MCHC 31.7 L g/dl (32-36) RDW 13.1 % (11.5-14.5) Plt Count 154 k/mm3 (150-375) MPV 9.9 fl (7.4-10.4) Immature Gran % (Auto) 0.3 % (0-0.5) Neut % (Auto) 58.0 % (45.5-73.1) Lymph % (Auto) 30.3 % (18.3-44.2) Crenshaw % (Auto) 8.1 % (2.6-8.5) Eos % (Auto) 3.0 % (0-4.4) Baso % (Auto) 0.3 % (0.2-1.2) Lymph # (Auto) 1.83 K/mm3 (0.9-3.2) Crenshaw # (Auto) 0.5 K/mm3 (0.1-0.6) Eos # (Auto) 0.2 K/mm3 (0-0.3) Baso # (Auto) 0.0 K/mm3 (0.0-0.1) Abs Immat Gran (auto) 0.02 K/mm3 (0.00-0.031) Absolute Neuts (auto) 3.5 K/mm3 (1.3-6.7) Absolute Nucleated RBC 0.000 K/mm3 (0.0-0.012) Nucleated RBC % 0.0 % (0.0-0.2) Sodium 137 mmol/L (137-145) Potassium 3.1 L mmol/L (3.4-5.0) Chloride 107 mmol/L (98-107) Carbon Dioxide 27 mmol/L (22-30) Anion Gap 3 L mmol/L (4-12) BUN 7 mg/dL (7-17) Creatinine 0.50 L mg/dL (0.7-1.0) Estim Creat Clear Calc 158 ml/min Estimated GFR > 60 (59 - ) Glucose 86 mg/dL (65-110) POC Capillary Glucose 84 mg/dl 85 mg/dl (65-105) (65-105) Calcium 8.0 L mg/dL (8.4-10.2) Total Bilirubin 0.5 mg/dL (0.2-1.3) AST 20 U/L (14-36) ALT 16 U/L (6-35) Alkaline Phosphatase 22 L U/L (38-126) Total Protein 6.0 L g/dL (6.3-8.2) Albumin 3.4 L g/dL (3.5-5.1) Procalcitonin 0.1 ng/mL 07/03/23 07/03/23 05:57 12:24 WBC RBC Hgb Hct MCV MCH MCHC RDW Plt Count MPV Immature Gran % (Auto) Neut % (Auto) Lymph % (Auto) Crenshaw % (Auto) Eos % (Auto) Baso % (Auto) Lymph # (Auto) Crenshaw # (Auto) Eos # (Auto) Baso # (Auto) Abs Immat Gran (auto) Absolute Neuts (auto) Absolute Nucleated RBC Nucleated RBC % Sodium Potassium Chloride Carbon Dioxide Anion Gap BUN Creatinine Estim Creat Clear Calc Estimated GFR Glucose POC Capillary Glucose 85 mg/dl 81 mg/dl (65-105) (65-105) Calcium Total Bilirubin AST ALT Alkaline Phosphatase Total Protein Albumin Procalcitonin Patient hx anesthe
[2023-07-03] MEDS: ceFAZolin 2 GM/D5W 50 ML 2 GM/50 ML BAG IVPB (14:54)
[2023-07-03] MEDS: BUPIVACAINE/EPINEPHRINE 0.5% 10 ML VIAL 30 ML INFILTRATE (15:07)
--- NOTE | 2023-07-03 15:52 | W.PM.PROC2 ---
Procedure Note - Detailed Date of Procedure 07/03/23 Pre-op Diagnosis Acute calculous cholecystitis Post-op Diagnosis Same Procedure Performed Laparoscopic Cholecystectomy Surgeon Butch Leiva, DO Anesthesia General and Local (0.5% bupivacaine) Indications This is a 38-year-old woman who presented to the emergency department 2 days ago with right upper quadrant pain. CT showed evidence of acute cholecystitis. She was admitted for further treatment. Discussions were made with the patient about treatment options and decision was made to proceed with laparoscopic cholecystectomy, possible open. Findings Laparoscopic cholecystectomy was performed. The patient did have evidence of acute cholecystitis with a thickened gallbladder wall and edema. The cystic duct appeared normal in size. There were multiple small and medium-sized gallstones within the gallbladder almost completely filling up the dilated gallbladder. The gallbladder was removed and sent to the lab for pathology. No other intra-abdominal abnormalities were noted. Description of Procedure Procedure as well as risks, benefits, and alternatives were discussed with patient. Written consent was obtained and placed in chart prior to procedure. The patient was brought back to surgical suite. Patient was placed in supine position on operating table. Time-out was done to confirm patient and procedure. Patient was then intubated by the anesthesia department. Abdomen was prepped and draped in sterile fashion using chlorhexidine prep. 0.5% bupivacaine with epinephrine was infiltrated at each site of incision. A 5 millimeter incision was made near the umbilicus, and a 5 millimeter Optiview trocar was advanced through the abdominal layers under direct visualization. Once inside the abdominal cavity, carbon dioxide was insufflated to create a pneumoperitoneum. The camera was inserted and the abdomen was inspected. No immediate abnormalities were identified. The patient was placed in reverse Trendelenburg position and rotated slightly to the left. An 11 millimeter incision was made in the subxiphoid region, and an 11 millimeter trocar was inserted under direct visualization. Two 5 millimeter incisions were made in the right upper quadrant, and two 5 millimeter trocars were inserted under direct visualization. The gallbladder was identified and grasped at the fundus and retracted superiorly. It was then grasped at the infundibulum retracted laterally. Careful dissection around the neck of the gallbladder was performed using blunt dissection with a [place] grasper and hook electrocautery. The cystic duct was identified, and a window was created behind it. The cystic artery was also identified and a window was created behind it. The critical view of safety was identified, visualizing the cystic duct running directly into the neck of the gallbladder, and the cystic artery running directly into the wall of the gallbladder. A 5 millimeter clip squilgeer was then used to place 2 clips proximally and 1 clip distally on both the cystic duct and cystic artery. They were then both transected using endoscopic scissors. Once safely away from the lori hepatitis, the gallbladder was dissected free from the liver bed using hook electrocautery. Hemostasis was achieved along the way. The gallbladder was removed completely and then removed through the subxiphoid port. The liver bed was then inspected. Hemostasis appeared adequate, and our clips appeared secure. The area was gently irrigated with sterile saline. No other abnormalities were seen. The patient was flattened out in bed, and 1 final inspection was made around the abdominal cavity. The subxiphoid port was removed, and a Rigo Gilles cone was used to approximate the fascia with an 0-Vicryl simple interrupted suture. The remaining ports were then removed under direct visualization, the camera was removed, and the pneumoperitoneum was released. The ski
[2023-07-03] MEDS: fentaNYL CITRATE INJ (*CRX) 100 MCG/2 ML VIAL 25 MCG IV PUSH ×4 (16:19→16:40)
--- NOTE | 2023-07-03 16:26 | SUR.PHASEI ---
1625: Simple mask removed.
--- NOTE | 2023-07-03 17:10 | PC.NURSE ---
Returned from OR via bed. Family at bedside.
[2023-07-03] MEDS: POTASSIUM CHLORIDE INJ 40 MEQ in SODIUM CHLORIDE 0.9% IV 500 ML 130 MEQ IVPB (17:22)
[2023-07-03] MEDS: ONDANSETRON INJ 4 MG/2 ML VIAL IV PUSH (17:34)
[2023-07-03] MEDS: IBUPROFEN 400 MG TABLET 800 MG PO (17:53)
[2023-07-03 18:16] LABS: Glucose Point of Care 104 mg/dl (65-105)
[2023-07-03] MEDS: cefTRIAXone 2 GM/NS 100 ML 2 GM/100 ML BAG IVPB (21:01)
[2023-07-04] MEDS: MORPHINE SULFATE (*CRX) 2 MG/ML INJ IV PUSH (00:11)
[2023-07-04] MEDS: IBUPROFEN 400 MG TABLET 800 MG PO ×2 (00:14→08:52)
[2023-07-04] MEDS: metroNIDAZOLE 500 MG/ISO 100ML 500 MG/100 ML BAG 100 MG IVPB (04:54)
[2023-07-04 05:01] VITALS: BP 138/59; PULSE 81; RESP 14; TEMP 36.4; O2SAT 100
[2023-07-04 06:23] LABS: Basophils Percent Auto 0.1 % (0.2-1.2); Hemoglobin 11.7 g/dL (12.0-15.0); Immature Granulocyte Absolute 0.03 K/mm3 (0.00-0.031); Immature Granulocyte Percent A 0.3 % (0-0.5); Lymphocytes Absolute Auto 0.88 K/mm3 (0.9-3.2); Lymphocytes Percent Auto 9.4 % (18.3-44.2); Mean Corpuscular HGB Conc 32.5 g/dl (32-36); Mean Corpuscular Hemoglobin 27.3 pg (26-34); Mean Corpuscular Volume 83.9 fl (80-100); Mean Platelet Volume 9.9 fl (7.4-10.4); Monocytes Absolute Auto 0.5 K/mm3 (0.1-0.6); Monocytes Percent Auto 4.9 % (2.6-8.5); Neutrophils Percent Auto 85.3 % (45.5-73.1); Platelet Count Result 182 k/mm3 (150-375); Red Blood Count 4.29 M/mm3 (4.2-5.4); Red Cell Distribution Width 12.7 % (11.5-14.5); White Blood Count 9.4 K/mm3 (4.5-10.0)
[2023-07-04 06:51] LABS: Alanine Aminotransferase 16 U/L (6-35); Albumin Level 3.5 g/dL (3.5-5.1); Alkaline Phosphatase 23 U/L (38-126); Anion Gap 6 mmol/L (4-12); Aspartate Amino Transferase 21 U/L (14-36); Bilirubin,Total 0.3 mg/dL (0.2-1.3); Blood Urea Nitrogen 6 mg/dL (7-17); Calcium 8.5 mg/dL (8.4-10.2); Carbon Dioxide 23 mmol/L (22-30); Chloride 109 mmol/L (98-107); Estimated CRCL calculation 158 ml/min; Estimated Glomerular Filt Rate > 60; Glucose 107 mg/dL (65-110); Sodium 138 mmol/L (137-145)
[2023-07-04 06:56] LABS: Potassium 3.5 mmol/L (3.4-5.0)
--- NOTE | 2023-07-04 07:50 | PM.IMPN ---
Progress Note: A&P Assessment and Plan (1) Acute cholecystitis: Code(s): K81.0 - Acute cholecystitis Status: Acute (2) Right upper quadrant abdominal pain: Code(s): R10.11 - Right upper quadrant pain Status: Acute (3) Severe sepsis: Code(s): A41.9 - Sepsis, unspecified organism; R65.20 - Severe sepsis without septic shock Status: Acute Plan Acute right upper quadrant pain Suspecting acute cholecystitis Labs showed leukocytosis of 13,800 with left shift, CT abdomen pelvis showed?gallbladder hydrops with gallbladder wall inflammatory change, may represent cholecystitis. Patient also has nausea vomiting diarrhea Keep patient p.o. Start normal saline IV Start Zofran 4 mg IV p.r.n. Start ceftriaxone and Flagyl IV 06/30 Abdomen ultrasound suggests Gallbladder wall thickening and pericholecystic fluid, suggesting acute cholecystitis? Continue antibiotics, 07/01 Laparoscopic cholecystectomy is scheduled, patient requests to speak to surgeon about the surgical treatment before making final decision 07/02 07/03; status post cholecystectomyday1, , no surgical complication. Patient tolerated diet well sepsis Patient has leukocytosis 13,800 with a neutrophilic shift, tachycardia tachypnea, patient developed sepsis Follow-up blood culture : No growth so far Continue fluid resuscitation resolves Hypokalemia Potassium 3.1 Provide potassium chloride 40 mg IV once Subjective Date/time seen: 07/04/23 07:50 Interval history: s/p Laparoscopic Cholecystectomy D1, patient is afebrile overnight, blood pressure stable, no O2 desaturation. Patient tolerated diet well, denies abdomen pain, nausea vomiting diarrhea. Patient also denies chest pain, shortness a of breath, palpitation. Patient is afebrile, blood pressure stable, pulse ox 99 on room air Exam Narrative: GENERAL: Pleasant, in no acute distress. Well-nourished. - EYES: EOMI. Anicteric. - HENT: Moist mucous membranes. - LUNGS: Clear to auscultation bilaterally, no wheezing, rhonchi, or rales. - CARDIOVASCULAR: Regular rate and rhythm. No murmur. No JVD. - ABDOMEN: Soft, surgical wound dry and clean, and non-distended. No palpable masses. - EXTREMITIES: No edema. Peripheral pulses 2+. Non-tender. - NEUROLOGIC: No focal neurological deficits. CN II-XII grossly intact. - PSYCHIATRIC: Awake, Alert and oriented x 3. Appropriate mood and affect. - SKIN: No rashes or lesions. Warm. - LYMPH: No cervical lymphadenopathy. Objective Data Vital Signs Vital Signs: Vital Signs - 24 hr 07/03/23 08:26 07/03/23 14:10 07/03/23 15:51 Temperature 98.1 F 97.1 F L Pulse Rate 78 84 Respiratory Rate 18 14 16 Blood Pressure 123/58 L 130/57 L Pulse Oximetry 99 99 99 Oxygen Delivery Room Air Room Air Simple Face Mask Oxygen Flow Rate 8 07/03/23 16:05 07/03/23 16:20 07/03/23 16:35 Temperature 97.6 F 97.8 F 98.0 F Pulse Rate 90 84 85 Respiratory Rate 18 18 13 Blood Pressure 140/64 134/64 145/59 H Pulse Oximetry 100 100 100 Oxygen Delivery Simple Face Mask Simple Face Mask Room Air Oxygen Flow Rate 8 8 07/03/23 16:50 07/03/23 17:10 07/03/23 17:25 Temperature 98.6 F 98.4 F Pulse Rate 90 81 79 Respiratory Rate 18 16 16 Blood Pressure 122/58 L 124/67 134/64 Pulse Oximetry 99 98 96 Oxygen Delivery Room Air Oxygen Flow Rate 07/03/23 17:55 07/03/23 17:10 07/03/23 18:55 Temperature 98.9 F 98.8 F Pulse Rate 82 78 Respiratory Rate 16 16 16 Blood Pressure 132/57 L 113/48 L Pulse Oximetry 96 96 99 Oxygen Delivery Room Air Oxygen Flow Rate 07/03/23 21:00 07/03/23 20:00 07/03/23 23:40 Temperature 97.6 F 97.6 F Pulse Rate 73 73 67 Respiratory Rate 16 16 18 Blood Pressure 127/71 135/53 L Pulse Oximetry 100 100 100 Oxygen Delivery Room Air Oxygen Flow Rate 07/04/23 05:01 Temperature 97.6 F Pulse Rate 81 Respiratory Rate 14 Blood Pressure 138/59 L Pulse Oximetry 100 Oxygen Delivery Oxygen Flow Ra
--- NOTE | 2023-07-04 07:53 | PM.DS ---
DS: Admitting Diagnosis Discharge Date 07/03 Admitting Diagnosis (1) Acute cholecystitis: ?Code(s): K81.0 - Acute cholecystitis ?Status:?Acute (2) Right upper quadrant abdominal pain: ?Code(s): R10.11 - Right upper quadrant pain ?Status:?Acute (3) Severe sepsis: ?Code(s): A41.9 - Sepsis, unspecified organism; R65.20 - Severe sepsis without septic shock ?Status:?Acute DS: Discharge Diagnosis Discharge Diagnosis (1) Acute cholecystitis: Code(s): K81.0 - Acute cholecystitis Status: Acute (2) Right upper quadrant abdominal pain: Code(s): R10.11 - Right upper quadrant pain Status: Acute (3) Severe sepsis: Code(s): A41.9 - Sepsis, unspecified organism; R65.20 - Severe sepsis without septic shock Status: Acute DS: Summary Hospital Course Hospital Course: 38 years old lady without significant past medical history present ED with a chief complaint of right quadrant pain.? Patient start to have right quadrant pain the night before the admission, associated with intermittent nausea and vomiting.? Patient denies fever, chills.? And patient also has diarrhea.? Patient has worsening pain and cannot tolerate diet, therefore came to ED for evaluation.? Upon arrival in the ED, patient was afebrile, blood pressure stable, pulse ox 99 on room air,.? Labs showed leukocytosis of 13,800 with left shift, CT abdomen pelvis showed?gallbladder hydrops with gallbladder wall inflammatory change, may represent cholecystitis.? ER physician consulted the general surgeon, received fluid resuscitation.? We admit patient for further evaluation and treatment The following med issues have been addressed during hospitalization Acute right upper quadrant pain Suspecting acute cholecystitis Labs showed leukocytosis of 13,800 with left shift, CT abdomen pelvis showed?gallbladder hydrops with gallbladder wall inflammatory change, may represent cholecystitis. Patient also has nausea vomiting diarrhea Keep patient p.o. Start normal saline IV Start Zofran 4 mg IV p.r.n. Start ceftriaxone and Flagyl IV 06/30 Abdomen ultrasound suggests Gallbladder wall thickening and pericholecystic fluid, suggesting acute cholecystitis? Continue antibiotics, 07/01 Laparoscopic cholecystectomy is scheduled, patient requests to speak to surgeon about the surgical treatment before making final decision 07/02 07/03; status post cholecystectomyday1, , no surgical complication. Patient tolerated diet well sepsis Patient has leukocytosis 13,800 with a neutrophilic shift, tachycardia tachypnea, patient developed sepsis Follow-up blood culture : No growth so far Continue fluid resuscitation resolves Hypokalemia Potassium 3.1 Provide potassium chloride 40 mg IV once K3.5 on 07/03 Time Spent with Patient Time attestation: Total time spent providing and/or coordinating discharge services: Exam Narrative: GENERAL: Pleasant, in no acute distress. Well-nourished. - EYES: EOMI. Anicteric. - HENT: Moist mucous membranes. - LUNGS: Clear to auscultation bilaterally, no wheezing, rhonchi, or rales. - CARDIOVASCULAR: Regular rate and rhythm. No murmur. No JVD. - ABDOMEN: Soft, surgical wound dry and clean, and non-distended. No palpable masses. - EXTREMITIES: No edema. Peripheral pulses 2+. Non-tender. - NEUROLOGIC: No focal neurological deficits. CN II-XII grossly intact. - PSYCHIATRIC: Awake, Alert and oriented x 3. Appropriate mood and affect. - SKIN: No rashes or lesions. Warm. - LYMPH: No cervical lymphadenopathy. DS: Data Data Completed and Pending Pending studies at discharge: Pending at discharge 07/03/23 14:35 Surgical [PTH] Routine Labs on day of discharge: Labs from last 24 hours 07/04/23 07/03/23 07/03/23 05:05 18:11 12:24 WBC 9.4 RBC 4.29 Hgb 11.7 L Hct 36.0 L MCV 83.9 MCH 27.3 MCHC 32.5 RDW 12.7 Plt Count 182 MPV 9.9 Immature Gran % (Auto) 0.3
--- NOTE | 2023-07-04 08:16 | WPDANESPN ---
Anes - Prog Note Post-Op Date/Time: 07/04/23 08:16 Cardiovascular status: normal Respiratory status: normal Airway patency: baseline Mental status: baseline Post-Op hydration status: normal Vital Signs: Last Vital Signs Temp 36.4 C 07/04/23 05:01 Pulse 81 07/04/23 05:01 Resp 14 07/04/23 05:01 BP 138/59 L 07/04/23 05:01 Pulse Ox 100 07/04/23 05:01 O2 Del Method Room Air 07/03/23 20:00 O2 Flow Rate 8 07/03/23 16:20 Pain Score (VAS): 0/10 I/O: Intake & Output 07/03/23 07/04/23 07/04/23 23:59 07:59 15:59 Intake Total 1150 400 Output Total 700 800 Balance 450 -400 Laboratory Tests 07/04/23 05:05 07/04/23 05:05 07/03/23 07/03/23 07/04/23 12:24 18:11 05:05 WBC 9.4 RBC 4.29 Hgb 11.7 L Hct 36.0 L MCV 83.9 MCH 27.3 MCHC 32.5 RDW 12.7 Plt Count 182 MPV 9.9 Immature Gran % (Auto) 0.3 Neut % (Auto) 85.3 H Lymph % (Auto) 9.4 L [place] % (Auto) 4.9 Eos % (Auto) 0.0 Baso % (Auto) 0.1 L Lymph # (Auto) 0.88 L [place] # (Auto) 0.5 Eos # (Auto) 0.0 Baso # (Auto) 0.0 Abs Immat Gran (auto) 0.03 Absolute Neuts (auto) 8.0 H Absolute Nucleated RBC 0.000 Nucleated RBC % 0.0 Sodium 138 Potassium 3.5 Chloride 109 H Carbon Dioxide 23 Anion Gap 6 BUN 6 L Creatinine 0.50 L Estim Creat Clear Calc 158 Estimated GFR > 60 Glucose 107 POC Capillary Glucose 81 104 Calcium 8.5 Total Bilirubin 0.3 AST 21 ALT 16 Alkaline Phosphatase 23 L Total Protein 6.0 L Albumin 3.5 Procalcitonin 0.0 Microbiology 07/02/23 08:28 Blood Blood Culture - Preliminary 07/02/23 08:46 Blood Blood Culture - Preliminary Post-procedural complaints: none Patient Feedback: Patient satisfied with anesthetic care.
--- NOTE | 2023-07-04 08:41 | PM.PNGS ---
Progress Note: A&P Assessment and Plan (1) Acute cholecystitis: Code(s): K81.0 - Acute cholecystitis Status: Acute Assessment and Plan: Doing well on POD#1. OK to discharge today. Instructions discussed with patient. F/u in 2 weeks. Subjective Subjective Date/Time Seen: 07/04/23 08:41 Interval history: Doing well on POD#1. Tolerating diet. Pain controlled. Exam GI: Inspection: non-distended and incision (intact with glue) Objective Data Vital Signs Vital Signs: Vital Signs - 24 hr 07/03/23 14:10 07/03/23 15:51 07/03/23 16:05 Temperature 36.7 C 36.2 C L 36.4 C Pulse Rate 78 84 90 Respiratory Rate 14 16 18 Blood Pressure 123/58 L 130/57 L 140/64 Pulse Oximetry 99 99 100 Oxygen Delivery Room Air Simple Face Mask Simple Face Mask Oxygen Flow Rate 8 8 07/03/23 16:20 07/03/23 16:35 07/03/23 16:50 Temperature 36.6 C 36.7 C Pulse Rate 84 85 90 Respiratory Rate 18 13 18 Blood Pressure 134/64 145/59 H 122/58 L Pulse Oximetry 100 100 99 Oxygen Delivery Simple Face Mask Room Air Room Air Oxygen Flow Rate 8 07/03/23 17:10 07/03/23 17:25 07/03/23 17:55 Temperature 37.0 C 36.9 C 37.2 C Pulse Rate 81 79 82 Respiratory Rate 16 16 16 Blood Pressure 124/67 134/64 132/57 L Pulse Oximetry 98 96 96 Oxygen Delivery Oxygen Flow Rate 07/03/23 17:10 07/03/23 18:55 07/03/23 21:00 Temperature 37.1 C 36.4 C Pulse Rate 78 73 Respiratory Rate 16 16 16 Blood Pressure 113/48 L 127/71 Pulse Oximetry 96 99 100 Oxygen Delivery Room Air Oxygen Flow Rate 07/03/23 20:00 07/03/23 23:40 07/04/23 05:01 Temperature 36.4 C 36.4 C Pulse Rate 73 67 81 Respiratory Rate 16 18 14 Blood Pressure 135/53 L 138/59 L Pulse Oximetry 100 100 100 Oxygen Delivery Room Air Oxygen Flow Rate Intake/Output Intake/Output: Intake & Output 07/01/23 07/02/23 07/03/23 07/04/23 23:59 23:59 23:59 23:59 Intake Total 1200 4365.8 2765.8 400 Output Total 2050 3000 800 Balance 1200 2315.8 -234.2 -400 Meds/Results Medications: Active Medications Generic Name Dose Route Start Last Admin Trade Name Freq PRN Reason Stop Dose Admin Acetaminophen 650 mg 07/03/23 16:59 Acetaminophen 325 Mg Tablet PO Q6H PRN Mild Pain (1-3) or Fever Diphenhydramine HCl 25 mg 07/03/23 16:59 Diphenhydramine Hcl Inj 50 Mg/Ml Vial IV PUSH Q6H PRN Itching Ceftriaxone Sodium 2 gm in 100 mls @ 200 mls/hr 07/01/23 21:00 07/04/23 07:21 Rocephin 2 Gm/Ns 100 Ml IVPB Infused Q24H EMILY Infusion Metronidazole 500 mg in 100 mls @ 100 mls/hr 07/01/23 22:00 07/04/23 07:21 Flagyl 500 Mg/Iso Soln 100 Ml IVPB Infused Q8HR EMILY Infusion Ibuprofen 800 mg 07/03/23 17:45 07/04/23 00:14 Ibuprofen 400 Mg Tablet PO 800 mg Q6H PRN Administration Pain Rated 4-6 Morphine Sulfate 2 mg 07/03/23 16:59 07/04/23 00:11 Morphine Sulfate (*Crx) 2 Mg/Ml Inj IV PUSH 2 mg Q2H PRN Administration Pain Rated 4-6 Morphine Sulfate 4 mg 07/03/23 16:59 Morphine Sulfate (*Crx) 4 Mg/Ml Inj IV PUSH Q2H PRN Pain Rated 7-10 Naloxone HCl 0.1 mg 07/03/23 16:59 Naloxone Hcl 0.4 Mg/Ml Vial IV PUSH Q2M PRN Opiate Reversal Ondansetron HCl 4 mg 07/01/23 20:32 07/03/23 17:34 Ondansetron Inj 4 Mg/2 Ml Vial IV PUSH 4 mg Q4H PRN Administration Nausea Oxycodone/Acetaminophen 1 tablet 07/04/23 08:25 Oxycodone/Acetaminophen (*Crx) 5-325 Mg Tablet PO Q4H PRN Pain Rated 7-10 Radiology Results: ITS Impressions Abdomen/Pelvis CT 07/01/23 18:47 IMPRESSION: Hepatomegaly. Gallbladder hydrops with gallbladder wall inflammatory change, may represent cholecystitis in the appropriate clinical context. Adherent sludge versus bladder wall polyp. Recommend ultrasound of the right upper quadrant for further evaluation. Abdomen Ultrasound 07/02/23 10:50 IMPRESSION: Cholelithiasis Gallbladder wall
[2023-07-04] MEDS: oxyCODONE/ACETAMINOPHEN (*CRX) 5-325 MG TABLET 1 TABLET PO (08:52)
[2023-07-04 10:33] VITALS: BP 131/57; PULSE 84; RESP 16; TEMP 36.5; O2SAT 99
== END 2023-07-04 11:19 | disposition home or self-care (01) ==
LOC: ANHED 20:56 → ANH2MED 21:07
PROVIDERS: Nurse Practitioner Family; Student in an Organized Health Care Education/Training Program; Surgery; Admitting Provider Hospitalist; Emergency Provider Physician Assistant; Visit Provider Hospitalist
PROC: 0FT44ZZ Resection of Gallbladder, Percutaneous Endoscopic Approach (ICD-10-PCS; CPT 47562; principal; 2023-07-03 15:30)
DX: A41.9 Sepsis, unspecified organism (principal); R65.20 Severe sepsis without septic shock; K80.00 Calculus of gallbladder with acute cholecystitis without obstruction; E87.6 Hypokalemia; F90.9 Attention-deficit hyperactivity disorder, unspecified type; Z20.822 Contact with and (suspected) exposure to COVID-19
CPT/HCPCS: 47562; 36415; 74177; 76705; 80053; 81001; 81025; 82948; 83605; 83690; 84145; 85025; 87040; 87637; 88304; 96361; 96374; 96375; 99285; A9270; G0378; J0690; J0696; J1100; J1836; J2250; J2270; J2405; J2704; J3010; J3480; J7030; J7040; J7120; Q9967

== ENCOUNTER 2024-07-15 13:05 | Emergency (ER) | payer OTHER, SELFPAY ==
[2024-07-15 13:18] VITALS: BP 113/91; PULSE 74; RESP 16; TEMP 36.6; O2SAT 99
--- NOTE | 2024-07-15 13:33 | PC.NURSE ---
PT WAS ABLE TO LOCATE LAST TDAP WAS IN 2018
[2024-07-15] MEDS: TETANUS,DIPHTHERIA,AC PERTUSSIS ADULT (0.5 ML) BOOSTRIX IM (13:46)
--- NOTE | 2024-07-15 13:46 | ED_ITS ---
HPI - Wound/Laceration General Chief Complaint: Wound/Laceration Stated Complaint: Cut Finger Time Seen by Provider: 07/15/24 13:29 Source: patient and RN notes reviewed Mode of arrival: ambulatory Limitations: no limitations History of Present Illness HPI narrative: Patient presents today with a laceration to her left thumb that was sustained 2 hours prior to arrival on a knife at home. Denies numbness or tingling. Her last tetanus shot was 7 years ago. No [id number] treatment prior to arrival. Related Data Home Medications ?Medication ?Instructions ?Recorded ?Confirmed ?Last Taken ?Type dextroamphetamine-amphetamine 20 20 mg PO DAILY PRN .concentration 07/01/23 07/15/23 Unknown History mg tablet meloxicam 15 mg tablet 15 mg PO DAILY PRN .tennis elbow 07/01/23 07/15/23 Unknown History Allergies Allergy/AdvReac Type Severity Reaction Status Date / Time tramadol Allergy Rash Verified 07/15/24 13:20 Review of Systems Review of Systems: CONSTITUTIONAL: Denies body aches, fever, chills, or sweats. EYES: Denies visual changes, redness, or discharge. ENT: Denies rhinorrhea, congestion, sore throat, or otalgia. CARDIOVASCULAR: Denies chest pain, palpitations, or edema. RESPIRATORY: Denies cough or dyspnea. GASTROINTESTINAL: Denies abdominal pain, nausea, vomiting, or diarrhea. GENITOURINARY: Denies dysuria or hematuria. SKIN: Left thumb laceration MUSCULOSKELETAL: Denies back pain, joint pain, or myalgia. NEUROLOGIC: Denies headache, numbness, tingling, or weakness. PSYCH: Denies depression or anxiety. [facility] Past Medical History Medical History History of ADHD Surgical History Surgical History History of laparoscopic cholecystectomy 07/03/23 History of ovarian cystectomy History of tubal ligation History of Family History Family History Father Skin cancer Mother Breast cancer Grandparent Dementia Grandparent Heart disease Social History Social History Smoking status: Never smoker Alcohol intake: never Substance use: never Substance use type: does not use Do You Feel Safe in your Home?: Yes Lack of Transportation: No Lack of Food: Never True Current Housing: I Have Housing Concerned About Future Housing: No Difficulty Paying Gas/Electric Bills: No Difficulty Paying for Meds: No Currently Unemployed: No Education: Associate Degree Difficulty w/ Childcare or Family Care: No Spiritual care concerns: No Comments At time of signature, I have reviewed and agree with nursing past medical, surgical, social and family history unless otherwise noted. Please see nursing chart for further information. There is no relevant family history pertinent to the presenting complaint Exam Narrative: GENERAL: Well-appearing, well-nourished, and in no acute distress. HEAD: Normocephalic, atraumatic. EYES: EOMI. No redness or drainage. Conjunctivae normal. ENT: Mucous membranes pink and moist. NECK: Normal AROM. CHEST: No respiratory distress. EXTREMITIES: Left thumb: 1.5 cm partial thickness flap laceration to the lateral interphalangeal joint with scant active bleeding. Full range of motion noted. Distal sensation intact. Capillary refill normal. SKIN: Warm, dry, no rash. Capillary refill normal. Normal skin turgor. NEURO: No focal deficits. Alert and oriented x3. Gait steady. PSYCH: Normal affect. No signs of depression or anxiety. Course Course Level of Care: Express Care Visit Vital Signs Vital signs: Vital Signs Oxygen Delivery Room Air 07/15/24 13:15 Temperature 97.8 F 07/15/24 13:18 Pulse Rate 74 07/15/24 13:18 Respiratory Rate 16 07/15/24 13:18 Blood Pressure 113/91 H 07/15/24 13:18 Pulse Oximetry 99 07/15/24 13:18 Oxygen Delivery Room Air 07/15/24 13:15 Reviewed Procedures Laceration Laceration 1: Date: 07/15/24 Time: 14:10 Site: hand (left thumb) Side (If applicable): left Size (cm): 1.5 Description: flap Depth: simple, single layer Local Anesthetic: none Pre-repair: wound explored and irrigated ====== Skin Level ====== Skin layer closed with: dermabond and steri strips ====== Subcutaneous Layer ====== ====== Muscle Layer ====== ====== Tendon Layer ====== Dressing: Splint applied. patient tolerated procedure well. MDM - Wound/Laceration MDM Narrative Medical decision making narrative: Patient's laceration has been closed with Steri-Strips and glue. Care instructions given. Tetanus shot updated. Differential Diagnosis Differential diagnosis: Likely laceration and avulsion of skin Critical Care Time Critical Care Time Critical Care Time: No Discharge Plan Discharge Clinical Impression: Finger laceration Qualifiers: Encounter type: initial encounter Finger: thumb Damage to nail status: without damage Foreign body presence: without foreign body Laterality: left Qualified Code(s): S61.012A - Laceration without foreign body of left thumb without damage to nail, initial encounter Patient Disposition: Home Condition: Stable Instructions: Finger Laceration (ED), Skin Adhesive Strips (ED) Additional Instructions: Your wound has been repaired with skin adhesive in glue. This will fall off on its own in approximately 1 week. You may wash your hands as normal but do not scrub. Do not pick at the glue. Wear the splint to remind herself not to bend your finger. Monitor for any signs of infection such as redness, swelling, increased pain, or drainage, and see your doctor if you note any. Take Tylenol or ibuprofen for pain if needed. If the glue comes off prematurely, keep covered until scabbed over. Your blood pressure was elevated above 120/80 today at Urgent Care. This puts you above the threshold for follow up. Please schedule a followup visit with your personal physician as soon as possible, for further evaluation and treatment. Even blood pressure exceeding 120/80 may indicate pre-hypertension. Patient Language: Sinhala Prescriptions: No Action meloxicam 15 mg tablet 15 mg PO DAILY PRN (Reason: .tennis elbow) dextroamphetamine-amphetamine 20 mg tablet 20 mg PO DAILY PRN (Reason: .concentration) Rx Instructions: work days oxycodone-acetaminophen [Endocet] 5-325 mg tablet 0.5 - 1 tablet PO Q4H PRN (Reason: pain) Qty: 5 0RF Follow-up/Referrals: PHYSICIAN,STONEMASON HELPER [Primary Care Provider] - Time of Disposition: 14:13
== END 2024-07-15 14:15 | disposition home or self-care (01) ==
PROVIDERS: Emergency Provider Nurse Practitioner
DX: S61.012A Laceration without foreign body of left thumb without damage to nail, initial encounter (principal); Z23 Encounter for immunization; W26.0XXA Contact with knife, initial encounter
CPT/HCPCS: 12001; 90471; 90715; 99212; G0463